=== PATIENT | male | born 1945 | race Caucasian/White ===

== ENCOUNTER 2019-07-27 22:46 | Emergency (ER) | payer OTHER ==
[~2019-07-27] VITALS: Ht 180.3 cm; Wt 98.0 kg
[~2019-07-27 22:46] MED LIST: ACET120S PO; Actos15 MG PO; Aspirin EC81 MG; Dulcolax Stool100 MG PO; ERGO400 PO; FOLI1 PO; HYDMETSO BOTHEYES; LISI5 PO; NIAC500 PO; OXYC5; Omeprazole20 M1 PO; PIOG15 PO; SIMV40 PO
[2019-07-27] MEDS ORDERED: METF500 PO (23:01)
[2019-07-27] MEDS ORDERED: Bactrim Ds Tab1 EACH PO (23:35)
== END 2019-07-28 00:02 | disposition home or self-care (01) ==
LOC: ER 22:46
DX: L02.412 Cutaneous abscess of left axilla (principal); E11.9 Type 2 diabetes mellitus without complications; Z79.84 Long term (current) use of oral hypoglycemic drugs; Z79.82 Long term (current) use of aspirin; Z79.899 Other long term (current) drug therapy
CPT/HCPCS: 10061; 99283-25; A9270-GY

== ENCOUNTER 2019-09-24 11:14 | Emergency (ER) | payer OTHER ==
[~2019-09-24] VITALS: Ht 180.3 cm; Wt 92.5 kg
[~2019-09-24 11:14] MED LIST changes: +Bactrim Ds Tab1 EACH PO; +METF500 PO
[2019-09-24] MEDS ORDERED: Bactrim Ds Tab1 EACH PO (11:25)
[2019-09-28] MEDS ORDERED: CEPH500 PO (10:49)
[2019-09-28] MEDS ORDERED: Norco 5-325 Ta1 EACH PO (10:49)
== END 2019-09-24 11:28 | disposition home or self-care (01) ==
LOC: ER 11:14
DX: L03.114 Cellulitis of left upper limb (principal); L02.512 Cutaneous abscess of left hand; E11.9 Type 2 diabetes mellitus without complications; Z85.46 Personal history of malignant neoplasm of prostate; Z79.84 Long term (current) use of oral hypoglycemic drugs; Z79.899 Other long term (current) drug therapy
CPT/HCPCS: 99282

== ENCOUNTER 2020-02-01 07:55 | Emergency (ER) | payer OTHER ==
[~2020-02-01] VITALS: Ht 180.3 cm; Wt 87.1 kg
[~2020-02-01 07:55] MED LIST changes: +CEPH500 PO; +Flagyl500 MG PO; +HIBICLENS120 ML EXT; +HYDR1TAB94 PO; +Monodox100 MG PO; +Norco 5-325 Ta1 EACH PO; +ONDA4ODT MM
[2020-02-01] MEDS ORDERED: Flagyl500 MG PO (08:40)
[2020-02-01] MEDS ORDERED: Vibramycin100 MG PO (08:40)
== END 2020-02-01 09:01 | disposition home or self-care (01) ==
LOC: ER 07:55
DX: K61.1 Rectal abscess (principal); K62.9 Disease of anus and rectum, unspecified; Z79.84 Long term (current) use of oral hypoglycemic drugs; Z79.82 Long term (current) use of aspirin; Z79.899 Other long term (current) drug therapy
CPT/HCPCS: 99282

== ENCOUNTER 2020-04-05 05:21 | Emergency (ER) | payer OTHER ==
[~2020-04-05] VITALS: Ht 177.8 cm; Wt 83.9 kg
[~2020-04-05 05:21] MED LIST changes: +Vibramycin100 MG PO
[2020-04-05] MEDS ORDERED: Bactrim Ds Tab1 EACH PO (06:44)
[2020-04-05] MEDS ORDERED: CEPH500 PO (06:44)
== END 2020-04-05 06:49 | disposition home or self-care (01) ==
LOC: ER 05:21
DX: K13.0 Diseases of lips (principal); E11.22 Type 2 diabetes mellitus with diabetic chronic kidney disease; N18.9 Chronic kidney disease, unspecified; Z88.8 Allergy status to other drugs, medicaments and biological substances; Z79.84 Long term (current) use of oral hypoglycemic drugs; Z79.82 Long term (current) use of aspirin; Z79.899 Other long term (current) drug therapy
CPT/HCPCS: 99283; A9270

== ENCOUNTER 2020-05-16 10:33 | Day surgery (SDC) | payer OTHER ==
[~2020-05-16] VITALS: Ht 180.3 cm; Wt 87.4 kg
--- NOTE | 2020-05-16 14:13 | NUR ---
Ambulatory in Day Surgery History, Chart, Medications and Allergies reviewed before start of procedure.Lungs clear T/O to Auscultation. Patient confirms NPO status and agrees with scheduled surgery. ALL BELONINGS PLACED UNDER THE BED. WILL CALL WHEN PT GETS TO STEP.
[2020-05-16] MEDS ORDERED: FAMO20 PO (14:15)
--- NOTE | 2020-05-16 14:52 | NUR ---
05/16/20 1452 Aura Pal NO PREOP ANTIBIOTICS ORDERED
--- NOTE | 2020-05-16 16:15 | NUR ---
Patient up to Ambulate independently. Gait steady. Discharge instructions reviewed with patient. Patient verbalizes understanding. Copy given to patient to take home. Discharged via wheelchair to private car for ride home [facility] .
== END 2020-05-16 16:20 | disposition home or self-care (01) ==
LOC: ORSCMMR 10:33 → ORD 10:33 → ORSCMMR 10:34 → ORD 16:20
PROVIDERS: Surgery
PROC: 0D9Q0ZZ Drainage of Anus, Open Approach (ICD-10-PCS; principal; 2020-05-16 15:30)
DX: K61.39 Other ischiorectal abscess (principal); I10 Essential (primary) hypertension; K21.9 Gastro-esophageal reflux disease without esophagitis; E11.9 Type 2 diabetes mellitus without complications; Z79.84 Long term (current) use of oral hypoglycemic drugs; E78.5 Hyperlipidemia, unspecified; Z79.899 Other long term (current) drug therapy; Z01.812 Encounter for preprocedural laboratory examination; Z20.822 Contact with and (suspected) exposure to COVID-19
CPT/HCPCS: 0241U; 82947; 93005; 93010; J1100; J2405; J2704; J3010; J7120

== ENCOUNTER → 2020-11-12 | Outpatient (CLI) | payer OTHER ==
[~2020-11-12] MED LIST changes: +FAMO20 PO
[2020-11-13 19:10] LABS: VARICELLA ZOSTER IGG 3169 index (Immune >165)
== END | disposition home or self-care (01) ==
LOC: LAB 08:09 → LAB SHORT 08:09
PROVIDERS: Physician Assistant
DX: J32.9 Chronic sinusitis, unspecified (principal)
CPT/HCPCS: 86694; 86787; 87070; 87077; 87147; 87186; 87205

== ENCOUNTER → 2022-01-25 | Outpatient (CLI) | payer OTHER | LOC: LAB 19:22 → LAB SHORT 19:22 | DX: H60.93 Unspecified otitis externa, bilateral (principal); L30.9 Dermatitis, unspecified | CPT/HCPCS: 87070; 87205 ==

== ENCOUNTER 2022-03-20 05:45 | Emergency (ER) | payer OTHER ==
[~2022-03-20] VITALS: Ht 180.3 cm; Wt 89.8 kg
[~2022-03-20 05:45] MED LIST changes: +Cleocin HCl300 MG PO
[2022-03-20] MEDS ORDERED: AMOCLA875 PO ×2 (06:35)
[2022-03-20] MEDS ORDERED: Clindamycin HC150 MG PO ×2 (06:35)
== END 2022-03-20 06:54 | disposition home or self-care (01) ==
LOC: ER 05:45
DX: N49.2 Inflammatory disorders of scrotum (principal); E11.9 Type 2 diabetes mellitus without complications; Z88.8 Allergy status to other drugs, medicaments and biological substances; Z79.84 Long term (current) use of oral hypoglycemic drugs; Z79.899 Other long term (current) drug therapy; Z79.82 Long term (current) use of aspirin
CPT/HCPCS: A9270

== ENCOUNTER → 2022-07-12 | Outpatient (CLI) | payer OTHER ==
[~2022-07-12] MED LIST changes: +AMOCLA875 PO; +Clindamycin HC150 MG PO
[2022-07-12 14:27] LABS: Albumin, Blood 3.9 g/dL (3.4-5.0); Albumin/Globulin Ratio 1.2 (0.8-1.8); Bilirubin, Total 0.4 mg/dL (0.1-1.0); Bun/Creatinine Ratio 16.7 (12.0-20.0); Creatinine, Blood 1.2 mg/dL (0.60-1.20); Globulin, Blood 3.2 g/dL (2.2-4.0); Phosphorus, Blood 3.3 mg/dL (2.5-4.9); Potassium, Blood 4.8 mmol/L (3.5-5.5); Total Protein, Blood 7.1 g/dL (6.4-8.2)
== END | disposition home or self-care (01) ==
LOC: LAB 12:47 → LAB SHORT 12:47
PROVIDERS: Internal Medicine Hematology & Oncology
DX: E11.22 Type 2 diabetes mellitus with diabetic chronic kidney disease (principal); N18.9 Chronic kidney disease, unspecified
CPT/HCPCS: 80053; 83036; 84100

== ENCOUNTER → 2023-01-11 | Outpatient (CLI) | payer OTHER ==
[2023-01-11 20:18] LABS: Albumin, Blood 4.2 g/dL (3.4-5.0); Albumin/Globulin Ratio 1.4 (0.8-1.8); Bilirubin, Total 0.5 mg/dL (0.1-1.0); Bun/Creatinine Ratio 16.2 (12.0-20.0); Creatinine, Blood 1.36 mg/dL (0.60-1.20); Globulin, Blood 3.1 g/dL (2.2-4.0); Percent Saturation 25.2 % (20.0-50.0); Phosphorus, Blood 3.3 mg/dL (2.5-4.9); Potassium, Blood 4.9 mmol/L (3.5-5.5); Total Protein, Blood 7.3 g/dL (6.4-8.2)
== END ==
LOC: LAB SHORT 17:07 → LAB 17:07
PROVIDERS: Internal Medicine Hematology & Oncology
DX: E11.22 Type 2 diabetes mellitus with diabetic chronic kidney disease (principal); D50.0 Iron deficiency anemia secondary to blood loss (chronic)
CPT/HCPCS: 80053; 82728; 83540; 83550; 84100

== ENCOUNTER 2023-04-13 22:17 | Emergency (ER) | payer OTHER ==
[~2023-04-13] VITALS: Ht 180.3 cm; Wt 108.9 kg
[2023-04-13 23:06] LABS: BASOPHILS ABSOLUTE AUTO 0.04 K/mm3 (0.00-0.23); BASOPHILS PERCENT AUTO 1 % (0-2); EOSINOPHILS ABSOLUTE AUTO 0.45 K/mm3 (0.00-0.68); EOSINOPHILS PERCENT AUTO 6 % (0-6); Hematocrit 35.7 % (37.0-53.0); Hemoglobin 12.3 g/dL (13.5-17.5); IMMATURE GRAN ABSOLUTE AUTO 0.04 K/mm3 (0.00-0.10); IMMATURE GRAN PERCENT AUTO 1 % (0-1); LYMPHOCYTES ABSOLUTE AUTO 1.42 K/mm3 (0.84-5.20); LYMPHOCYTES PERCENT AUTO 18 % (21-46); MONOCYTES ABSOLUTE AUTO 1.03 K/mm3 (0.16-1.47); MONOCYTES PERCENT AUTO 13 % (4-13); Mean Corpuscular HGB 32.5 pg (26.0-34.0); Mean Corpuscular HGB Conc 34.5 g/dL (31.5-36.5); Mean Corpuscular Volume 94 fL (80-100); Mean Platelet Volume 9.7 fL (9.1-12.4); NEUTROPHILS ABSOLUTE AUTO 5.03 K/mm3 (1.96-9.15); NEUTROPHILS PERCENT AUTO 63 % (41-73); Platelet Count 270 K/mm3 (150-400); RDW Coefficient Variation 13.5 % (11.7-14.2); Red Blood Cell Count 3.78 M/mm3 (4.30-5.90); White Blood Cell Count 8.01 K/mm3 (4.00-11.30)
[2023-04-13 23:10] LABS: Source, Urine Clean Catch
[2023-04-13 23:21] LABS: Bilirubin, Urine Neg (Neg); Blood, Urine Neg (Neg); Glucose Qualitative, Urine Neg (Neg); Ketones, Urine Neg (Neg); Leukocyte Esterase, Urine Neg (Neg); Nitrite, Urine Neg (Neg); Protein, Urine 1+ (Neg); Urobilinogen, Urine NORM (Normal)
[2023-04-13 23:30] LABS: Albumin, Blood 3.9 g/dL (3.4-5.0); Bilirubin, Total 0.6 mg/dL (0.1-1.0); Bun/Creatinine Ratio 15.8 (12.0-20.0); Calcium, Blood 9.3 mg/dL (8.5-10.1); Creatinine, Blood 1.2 mg/dL (0.60-1.20); Potassium, Blood 4.3 mmol/L (3.5-5.5); Total Protein, Blood 7.9 g/dL (6.4-8.2)
[2023-04-13 23:49] LABS: Appearance, Urine Clear (Clear); Color, Urine Yellow (P-Yellow)
[2023-04-14 02:30] VITALS: BP 120/77
[2023-04-14] MEDS ORDERED: ACET500 PO (02:41)
== END 2023-04-14 03:08 | disposition home or self-care (01) ==
LOC: ER 22:17
PROVIDERS: Emergency Medicine
DX: S39.012A Strain of muscle, fascia and tendon of lower back, initial encounter (principal); E11.22 Type 2 diabetes mellitus with diabetic chronic kidney disease; N18.9 Chronic kidney disease, unspecified; X58.XXXA Exposure to other specified factors, initial encounter; Z88.8 Allergy status to other drugs, medicaments and biological substances; Z79.84 Long term (current) use of oral hypoglycemic drugs; Z79.82 Long term (current) use of aspirin; Z79.899 Other long term (current) drug therapy
CPT/HCPCS: 74177; 80053; 85025; 99284-25; Q9967

== ENCOUNTER → 2023-04-26 | Outpatient (CLI) | payer OTHER ==
[~2023-04-26] MED LIST changes: +ACET500 PO
[2023-04-26 19:46] LABS: Percent Saturation 20.7 % (20.0-50.0)
== END ==
LOC: LAB SHORT 10:00 → LAB 10:00
PROVIDERS: Internal Medicine Hematology & Oncology
DX: D50.0 Iron deficiency anemia secondary to blood loss (chronic) (principal)
CPT/HCPCS: 82728; 83540; 83550